=== PATIENT | female | born 1985 | race African-American/Black ===

== ENCOUNTER 2024-10-20 11:53 | Emergency (ER) | payer SELFPAY ==
[~2024-10-20] VITALS: Ht 152.4 cm; Wt 86.1 kg
[2024-10-20 12:16] VITALS: O2SAT 99
[2024-10-20] MEDS: KETOROLAC 30MG/ML VIAL IV STA (14:01)
[2024-10-20] MEDS: ONDANSETRON HCL 4MG/2ML INJ IV STA (14:01)
[2024-10-20] MEDS: MECLIZINE 12.5MG TABLET PO ONE (14:15)
[2024-10-20] MEDS: SODIUM CHLORIDE 0.9% 1,000 ML IV ONE (14:15)
[2024-10-20 14:45] VITALS: TEMP 36.9
[2024-10-20 15:04] LABS: BASOPHILS % 0.6 % (0.0-2.0); EOSINOPHILS % 0.9 % (0.0-5.0); HEMATOCRIT. 40.7 % (36.0-48.0); HEMOGLOBIN. 13.2 g/dL (12.0-16.0); LYMPHOCYTES % 29.1 % (20.0-50.0); MEAN CORPUSCULAR HEMOGLOBIN 26.8 pg (28.0-32.0); MEAN CORPUSCULAR HGB CONC 32.4 g/dL (31.0-37.0); MEAN CORPUSCULAR VOLUME 82.6 fL (81.0-99.0); MEAN PLATELET VOLUME 10.2 fl (7.4-10.4); MONOCYTES % 5.5 % (2.0-8.0); NEUTROPHILS % 63.9 % (40.0-76.0); PLATELET 216 x1000/uL (130-400); RED BLOOD CELL COUNT 4.93 mill/uL (4.2-5.4); WHITE BLOOD COUNT 9.3 x1000/uL (4.5-11.0)
[2024-10-20 15:12] LABS: CARBON DIOXIDE 25 mEq/L (21-32); CHLORIDE 103 mEq/L (98-107); POTASSIUM 4.4 mEq/L (3.5-5.1); SODIUM 136 mEq/L (136-145)
[2024-10-20 15:13] LABS: CALCIUM 9.4 mg/dL (8.7-10.4)
[2024-10-20 15:17] LABS: CREATININE 0.6 mg/dL (0.6-1.0)
[2024-10-20 15:18] LABS: GLUCOSE 205 mg/dL (70-105); UREA NITROGEN BLOOD 9 mg/dL (9-23)
[2024-10-20 15:19] LABS: ALANINE AMINOTRANSFERASE 43 IU/L (10-49); ASPARTATE AMINOTRANSFERASE 37 IU/L (<34)
[2024-10-20 15:20] LABS: ALBUMIN 4.1 g/dL (3.2-4.8); BILIRUBIN DIRECT 0.2 mg/dL (<=3.0); PROTEIN TOTAL 7.4 g/dL (6.0-8.3)
[2024-10-20 15:30] LABS: PROTHROMBIN TIME 10.4 sec (9.6-11.0)
[2024-10-20 16:06] LABS: HCG SCREEN NEGATIVE
[2024-10-20 17:10] VITALS: BP 120/73; PULSE 69; RESP 13; O2SAT 100
[2024-10-20] MEDS ORDERED: METF-416 MT (17:21)
[2024-10-20] MEDS ORDERED: MECL-217 MT (17:21)
== END 2024-10-20 17:28 | disposition home or self-care (01) ==
LOC: ER 11:53
DX: R51.9 Headache, unspecified (principal); R42 Dizziness and giddiness; E11.9 Type 2 diabetes mellitus without complications; Z79.899 Other long term (current) drug therapy
CPT/HCPCS: 80076; 80048; 82962; 84703; 83690; 85025; 85610; 36415; 93005; 96361; 96374; 99284; J8597; J1885; J2405; J7030; Z7610 ×2